=== PATIENT | male | born 1990 | race Caucasian/White ===

== ENCOUNTER 2018-12-13 10:21 | Emergency (ER) | payer MEDICAID ==
[~2018-12-13] VITALS: Ht 177.8 cm; Wt 82.7 kg
[2018-12-13 10:28] VITALS: BP 132/72
[2018-12-13 11:42] LABS: RAPID INFLUENZA A Negative (Negative); RAPID INFLUENZA B Negative (Negative)
[2018-12-13] MEDS ORDERED: DEXAMETHASONE 4 MG TABLET ONE (11:53)
[2018-12-13] MEDS ORDERED: DEXAMETHASONE 4 MG TABLET PO ONE (12:00)
== END 2018-12-13 12:06 | disposition home or self-care (01) ==
LOC: ED 11:28
DX: B34.9 Viral infection, unspecified (principal); F17.200 Nicotine dependence, unspecified, uncomplicated
CPT/HCPCS: 71046; 87081; 87400; 87880; 93005; 99284

== ENCOUNTER 2021-07-04 10:49 | Emergency (ER) | payer SELFPAY ==
[~2021-07-04] VITALS: Ht 177.8 cm; Wt 77.2 kg
[2021-07-04] MEDS ORDERED: LIDOCAINE-MPF 1%, 5ML ONE (11:29)
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
[2021-07-04] MEDS ORDERED: L.E.T SOLUTION TP ONE ×2 (12:04→12:30)
[2021-07-04] MEDS ORDERED: DIPH,PERTUSS(ACELL),TET VAC/PF 0.5 ML IM-VACC ONE ×2 (12:05→12:30)
[2021-07-04] MEDS ORDERED: OXYcodone/APAP 5/325MG TABLET ONE (12:20)
[2021-07-04] MEDS ORDERED: LIDOCAINE 1%-EPI 1:100K, 20ML ONE (12:20)
[2021-07-04] MEDS ORDERED: OXYcodone/APAP 5/325MG TABLET PO ONE (12:30)
[2021-07-04] MEDS ORDERED: LIDOCAINE-MPF 1%, 5ML INFIL ONE (12:30)
[2021-07-04] MEDS ORDERED: LIDOCAINE 1%-EPI 1:100K, 20ML INFIL ONE (12:30)
[2021-07-04] MEDS ORDERED: BACITRACIN ZINC OINT 500U/GM, 0.9 GM ONE (13:35)
[2021-07-04] MEDS ORDERED: NEOSPORIN OINT. PKT 1 PACKET ONE (13:36)
[2021-07-04 13:46] VITALS: BP 128/95
== END 2021-07-04 14:58 | disposition home or self-care (01) ==
LOC: ED 14:35
DX: S01.81XA Laceration without foreign body of other part of head, initial encounter (principal); S09.90XA Unspecified injury of head, initial encounter; F17.200 Nicotine dependence, unspecified, uncomplicated; R00.0 Tachycardia, unspecified; W22.8XXA Striking against or struck by other objects, initial encounter; Y93.89 Activity, other specified; Y92.009 Unspecified place in unspecified non-institutional (private) residence as the place of occurrence of the external cause; Y99.8 Other external cause status
CPT/HCPCS: 12013; 70450; 90471; 90715; 99284

== ENCOUNTER 2021-07-11 22:20 | Emergency (ER) | payer SELFPAY ==
[~2021-07-11] VITALS: Ht 177.8 cm; Wt 78.8 kg
[2021-07-11 22:23] VITALS: BP 159/90
== END 2021-07-11 23:21 | disposition home or self-care (01) ==
LOC: ED 22:40
DX: S01.81XD Laceration without foreign body of other part of head, subsequent encounter (principal); Z72.9 Problem related to lifestyle, unspecified; F17.200 Nicotine dependence, unspecified, uncomplicated; X58.XXXD Exposure to other specified factors, subsequent encounter
CPT/HCPCS: 99281